=== PATIENT | male | born 1940 | race Caucasian/White ===

== ENCOUNTER 2023-11-04 10:40 | Inpatient (IN) | payer MEDICARE, OTHER ==
[2023-11-04] MEDS ORDERED: Ondansetron ODT 4 MG TAB PO PRN (11:43)
[2023-11-04] MEDS ORDERED: Acetaminophen 325 MG TAB PO PRN (11:43)
[2023-11-04] MEDS ORDERED: Senokot S 8.6-50 MG TAB PO PRN (11:43)
[2023-11-04] MEDS ORDERED: Bisacodyl 10 MG SUPP PR PRN (11:43)
[2023-11-04] MEDS ORDERED: Bisacodyl 5 MG TAB PO PRN (11:43)
[2023-11-04 18:25] VITALS: BMI 26.4
[2023-11-04] MEDS: Famotidine 20 MG TAB PO SCH (20:45)
[2023-11-04] MEDS: Ranolazine ER 500 MG TAB PO SCH (20:46)
[2023-11-04] MEDS: Acetaminophen 500 MG TAB PO PRN (20:50)
[2023-11-04] MEDS: traMADol HCl 50 MG TAB PO PRN (20:51)
[2023-11-05 05:51] LABS: #Basophils 0.1 thou/uL (0.0-0.2); #Eosinphils 0.1 thou/uL (0.0-0.7); #Lymphocytes 2.7 thou/uL (1.20-3.40); #Monocytes 0.8 thou/uL (0.11-0.59); #Neutrophils 2.9 thou/uL (1.40-6.50); %Basophils 1.4 % (0.0-1.0); %Eosinophils 0.8 % (0.0-10.0); %Monocytes 12.4 % (0.0-10.0); %Neutrophils 44.4 % (42.0-75.0); Hemoglobin 12.1 g/dL (14.0-18.0); Mean Corpuscular HGB CONC 32.6 g/dL (32.0-36.0); Mean Corpuscular Hemoglobin 29.5 pg (27.0-31.0); Mean Corpuscular Volume 90.3 fl (78.0-98.0); Mean Platelet Volume 5.4 fL (7.4-10.4); Platelet Count 158 10x3/uL (130-400); RBC Distribution Width 12.1 % (11.5-14.5); Red Blood Cell (RBC) Count 4.09 mill/uL (4.70-6.10); White Blood Cell (WBC) Count 6.5 10x3/uL (4.8-10.8)
[2023-11-05 06:06] LABS: ALT (SGPT) 13 U/L (8-55); AST (SGOT) 16 U/L (5-34); Alkaline Phosphatase 58 U/L (40-110); Anion Gap 12 mmol/L (10-20); BUN (Urea Nitrogen) 13 mg/dL (8.4-25.7); Bilirubin, Total 0.6 mg/dL (0.2-1.2); Calc. Creatinine Clearance 71 mL/min (70-130); Calcium 8.5 mg/dL (7.8-10.44); Carbon Dioxide 24 mmol/L (23-31); Chloride 102 mmol/L (98-107); Estimated GFR 86; Globulin 1.9 g/dL (2.4-3.5); Glucose 93 mg/dL (83-110); Potassium 2.9 mmol/L (3.5-5.1); Protein, Total 4.9 g/dL (5.8-8.1); Sodium 135 mmol/L (136-145)
[2023-11-05] MEDS: Polyethylene Glycol 3350 17 GM Packet PO SCH (07:45)
[2023-11-05] MEDS: Losartan 25 MG TAB PO SCH (07:46)
[2023-11-05] MEDS: Aspirin 81 mg Enteric Coated Tablet PO SCH (07:46)
[2023-11-05] MEDS: Potassium Chloride 20 MEQ TAB PO SCH ×2 (07:47→11:48)
[2023-11-05] MEDS: Rosuvastatin 10 MG TAB PO SCH (07:47)
[2023-11-05] MEDS: Enoxaparin 40 MG (0.4 mL) SYRINGE SC SCH (07:49)
[2023-11-05] MEDS: Fluticasone Propionate Nasal Spray 16 gm Bottle NASAL SCH (07:49)
[2023-11-05] MEDS ORDERED: Loratadine 10 MG TAB PO SCH (09:45)
[2023-11-05] MEDS: Loratadine 10 MG TAB PO SCH (10:06)
[2023-11-05] MEDS: predniSONE 20 MG TAB PO SCH (16:57)
[2023-11-05 17:35] LABS: Calcium 9.4 mg/dL (7.8-10.44); Chloride 103 mmol/L (98-107); Potassium 4.3 mmol/L (3.5-5.1); Sodium 136 mmol/L (136-145)
[2023-11-05 18:06] LABS: Anion Gap 16 mmol/L (10-20); BUN (Urea Nitrogen) 21 mg/dL (8.4-25.7); Calc. Creatinine Clearance 46 mL/min (70-130); Carbon Dioxide 21 mmol/L (23-31); Estimated GFR 52; Glucose 106 mg/dL (83-110)
[2023-11-05] MEDS: Melatonin 3 MG TAB PO SCH ×2 (20:45→23:26)
[2023-11-06 06:03] LABS: Anion Gap 13 mmol/L (10-20); BUN (Urea Nitrogen) 19 mg/dL (8.4-25.7); Calc. Creatinine Clearance 68 mL/min (70-130); Calcium 8.7 mg/dL (7.8-10.44); Carbon Dioxide 21 mmol/L (23-31); Chloride 103 mmol/L (98-107); Estimated GFR 82; Glucose 137 mg/dL (83-110); Potassium 3.7 mmol/L (3.5-5.1); Sodium 133 mmol/L (136-145)
[2023-11-06] MEDS: predniSONE 20 MG TAB PO SCH ×2 (07:55→08:00)
[2023-11-06] MEDS: Calcium Carbonate 600 MG + Vit D TAB PO SCH (07:56)
[2023-11-06] MEDS: Montelukast Sodium 10 mg Tablet PO SCH (20:40)
[2023-11-08 06:59] LABS: Anion Gap 12 mmol/L (10-20); BUN (Urea Nitrogen) 17 mg/dL (8.4-25.7); Calc. Creatinine Clearance 75 mL/min (70-130); Calcium 8.7 mg/dL (7.8-10.44); Chloride 105 mmol/L (98-107); Estimated GFR 87; Glucose 85 mg/dL (83-110); Potassium 3.2 mmol/L (3.5-5.1); Sodium 138 mmol/L (136-145)
[2023-11-08 07:13] LABS: Carbon Dioxide 24 mmol/L (23-31)
[2023-11-08] MEDS: Potassium Chloride 20 MEQ TAB PO SCH (09:15)
[2023-11-09 06:15] LABS: Anion Gap 11 mmol/L (10-20); BUN (Urea Nitrogen) 18 mg/dL (8.4-25.7); Calc. Creatinine Clearance 75 mL/min (70-130); Carbon Dioxide 25 mmol/L (23-31); Chloride 106 mmol/L (98-107); Estimated GFR 87; Glucose 84 mg/dL (83-110); Potassium 3.4 mmol/L (3.5-5.1); Sodium 139 mmol/L (136-145)
[2023-11-09] MEDS: Potassium Chloride 20 MEQ TAB PO SCH (10:05)
[2023-11-09] MEDS: hydrOXYzine 25 MG TAB PO PRN (11:04)
[2023-11-09] MEDS: Amoxicillin/Potassium Clav 875 MG TAB PO SCH (20:01)
[2023-11-10 06:28] LABS: Anion Gap 14 mmol/L (10-20); BUN (Urea Nitrogen) 16 mg/dL (8.4-25.7); Calc. Creatinine Clearance 76 mL/min (70-130); Calcium 8.7 mg/dL (7.8-10.44); Carbon Dioxide 22 mmol/L (23-31); Chloride 106 mmol/L (98-107); Estimated GFR 87; Glucose 83 mg/dL (83-110); Potassium 3.8 mmol/L (3.5-5.1); Sodium 138 mmol/L (136-145)
[2023-11-10] MEDS: Loperamide HCl 2 MG CAP PO PRN (09:24)
[2023-11-11] MEDS: Aspirin 81 mg Enteric Coated Tablet PO SCH (08:42)
[2023-11-12] MEDS: traZODone HCl 50 MG TAB PO SCH (21:54)
[2023-11-12] MEDS: Melatonin 3 MG TAB PO SCH (21:55)
[2023-11-13] MEDS ORDERED: traZODone HCl 50 MG TAB PO SCH (21:00)
[2023-11-13] MEDS ORDERED: Melatonin 3 MG TAB PO SCH (21:00)
[2023-11-13] MEDS: Melatonin 3 MG TAB PO SCH (21:52)
[2023-11-14 05:39] LABS: #Basophils 0.1 thou/uL (0.0-0.2); #Lymphocytes 2.8 thou/uL (1.20-3.40); #Neutrophils 4.2 thou/uL (1.40-6.50); %Basophils 0.8 % (0.0-1.0); %Eosinophils 0.4 % (0.0-10.0); %Lymphocytes 34.3 % (21.0-51.0); %Monocytes 11.9 % (0.0-10.0); %Neutrophils 52.6 % (42.0-75.0); Hematocrit 36.4 % (42.0-52.0); Hemoglobin 11.8 g/dL (14.0-18.0); Mean Corpuscular HGB CONC 32.5 g/dL (32.0-36.0); Mean Corpuscular Volume 92.3 fl (78.0-98.0); Mean Platelet Volume 4.9 fL (7.4-10.4); Platelet Count 170 10x3/uL (130-400); RBC Distribution Width 13.3 % (11.5-14.5); Red Blood Cell (RBC) Count 3.95 mill/uL (4.70-6.10)
[2023-11-14 05:57] LABS: ALT (SGPT) 18 U/L (8-55); AST (SGOT) 15 U/L (5-34); Albumin 3.1 g/dL (3.4-4.8); Alkaline Phosphatase 48 U/L (40-110); Anion Gap 10 mmol/L (10-20); BUN (Urea Nitrogen) 15 mg/dL (8.4-25.7); Bilirubin, Total 0.7 mg/dL (0.2-1.2); Calc. Creatinine Clearance 70 mL/min (70-130); Calcium 8.5 mg/dL (7.8-10.44); Carbon Dioxide 25 mmol/L (23-31); Chloride 106 mmol/L (98-107); Estimated GFR 83; Globulin 1.6 g/dL (2.4-3.5); Glucose 89 mg/dL (83-110); Potassium 3.6 mmol/L (3.5-5.1); Protein, Total 4.7 g/dL (5.8-8.1); Sodium 137 mmol/L (136-145)
[2023-11-14] MEDS: Polyethylene Glycol 3350 17 GM Packet PO SCH (11:06)
[2023-11-15] MEDS: Polyethylene Glycol 3350 17 GM Packet PO PRN (09:27)
[2023-11-16] MEDS: Polyethylene Glycol 3350 17 GM Packet PO SCH (09:15)
[2023-11-17] MEDS ORDERED: Bisacodyl 10 MG SUPP PR PRN (06:19)
[2023-11-17] MEDS: Polyethylene Glycol 3350 17 GM Packet PO SCH (08:56)
[2023-11-17 11:12] VITALS: BMI 26.7
[2023-11-17] MEDS: Senokot S 8.6-50 MG TAB PO PRN (14:47)
[2023-11-17] MEDS: Pantoprazole DR 40 MG TAB PO SCH (15:15)
[2023-11-17] MEDS: Bisacodyl 5 MG TAB PO PRN (17:50)
[2023-11-19] MEDS: predniSONE 20 MG TAB PO SCH (11:54)
[2023-11-20 07:15] VITALS: BP 137/85; TEMP 97.9
== END 2023-11-20 11:09 | disposition home health service (06) | DRG 948 ==
LOC: OBSVTOIN 17:34 → NAV ACUTE 17:34
PROVIDERS: ADMIT Student in an Organized Health Care Education/Training Program; ATTEND Student in an Organized Health Care Education/Training Program
DX: R53.81 Other malaise (principal); E78.5 Hyperlipidemia, unspecified; I10 Essential (primary) hypertension; J30.2 Other seasonal allergic rhinitis; Z66 Do not resuscitate; R13.10 Dysphagia, unspecified; R42 Dizziness and giddiness; I25.10 Atherosclerotic heart disease of native coronary artery without angina pectoris; F41.9 Anxiety disorder, unspecified; H66.92 Otitis media, unspecified, left ear; E87.6 Hypokalemia; R19.7 Diarrhea, unspecified; D64.9 Anemia, unspecified; G47.00 Insomnia, unspecified; K59.00 Constipation, unspecified; Z95.5 Presence of coronary angioplasty implant and graft; Z87.891 Personal history of nicotine dependence; Z85.46 Personal history of malignant neoplasm of prostate; Z85.828 Personal history of other malignant neoplasm of skin; Z98.890 Other specified postprocedural states; Z90.79 Acquired absence of other genital organ(s); Z88.5 Allergy status to narcotic agent; Z88.8 Allergy status to other drugs, medicaments and biological substances
CPT/HCPCS: 36415; 80048; 80053; 83735; 85025; J1650; J7512